=== PATIENT | female | born 1995 | race Caucasian/White ===

== ENCOUNTER 2017-06-08 03:09 | Emergency (ER) | payer OTHER ==
[~2017-06-08] VITALS: Ht 157.5 cm; Wt 66.6 kg
[2017-06-08 03:16] VITALS: BP 128/89
[2017-06-08] MEDS ORDERED: FLEXERIL10 MG PO (05:22)
== END 2017-06-08 05:47 | disposition home or self-care (01) ==
LOC: EME 03:09
DX: S46.911A Strain of unspecified muscle, fascia and tendon at shoulder and upper arm level, right arm, initial encounter (principal); V49.10XA Passenger injured in collision with unspecified motor vehicles in nontraffic accident, initial encounter
CPT/HCPCS: 99281; 99283